=== PATIENT | male | born 1990 | race Two or more races ===

== ENCOUNTER 2020-12-30 06:02 | Emergency (ER) | payer OTHER ==
[~2020-12-30] VITALS: Ht 172.7 cm; Wt 81.6 kg
--- NOTE | 2020-12-30 06:08 | NUR ---
pt lizzy and thelma c/o paranoia. Per thelma, pt's called 911 because pt was trying to take his baby from his after stating that her breast milk was poison. Pt admits to using marijuana, but denies any other illicit drug use. Pt tearful and repeating that he is "worried about his baby". pt attached to monitor and pox. [employer] at bedside. Pt given blanket and call light within reach
--- NOTE | 2020-12-30 06:25 | NUR ---
URINE SAMPLE COLLECTED AND SENT TO LAB.
[2020-12-30 07:07] LABS: BASOPHILS # (AUTO) 0.1 K/uL (0.0-0.2); BASOPHILS % (AUTO) 0.7 % (0.0-2.0); EOSINOPHILS % (AUTO) 1.6 % (0.0-6.0); HEMATOCRIT 42 % (39-51); HEMOGLOBIN 14.2 g/dL (13.5-17.5); LYMPHOCYTES # (AUTO) 2.2 K/uL (0.8-4.8); LYMPHOCYTES % (AUTO) 22.6 % (20.0-44.0); MEAN CORPUSCULAR HGB CONC 34 g/dl (31.0-36.0); MEAN CORPUSCULAR VOLUME 92 fL (80-96); MONOCYTES # (AUTO) 0.9 K/uL (0.1-1.30); MONOCYTES % (AUTO) 9.9 % (2.0-12.0); NEUTROPHILS # (AUTO) 6.2 K/uL (1.8-8.9); NEUTROPHILS % (AUTO) 65.2 % (43.0-81.0); PLATELET COUNT (AUTO) 281 K/uL (150-450); RED BLOOD CELL COUNT(AUTO) 4.62 MIL/uL (4.5-6.0); WHITE BLOOD COUNT (AUTO) 9.6 K/uL (4.3-11.0)
[2020-12-30 07:12] LABS: BILIRUBIN,URINE SMALL (NEGATIVE); COLOR,URINE DARK YELLOW (YELLOW); LEUKOCYTE ESTERASE ,URINE NEGATIVE (NEGATIVE); NITRITE, URINE NEGATIVE (NEGATIVE); PH,URINE 6.5 (5.0-8.0); PROTEIN,URINE TRACE mg/dl (NEGATIVE); UGLUCOSE NEGATIVE (NEGATIVE)
[2020-12-30 07:21] LABS: CALCIUM, SERUM 8.6 mg/dL (8.5-10.1); CARBON DIOXIDE 31 mmol/L (21-32); CHLORIDE 103 mmol/L (98-107); CREATININE 0.9 mg/dL (0.6-1.3); GLUCOSE 100 mg/dL (74-106); POTASSIUM 4.1 mmol/L (3.5-5.1); SODIUM SERUM 140 mmol/L (136-145); UREA NITROGEN, BLOOD 8 mg/dL (7-18)
[2020-12-30 07:35] LABS: BACTERIA,URINE None seen /HPF (None Seen); RBC,URINE NONE SEEN /HPF (0-2); SQUAMOUS EPITHELIAL CELL,UR Few /HPF (None Seen); WBC,URINE NONE SEEN /HPF (0-3)
[2020-12-30 07:37] LABS: ALANINE AMINOTRANSFERASE 19 U/L (12-78); ALBUMIN 4.7 g/dL (3.4-5.0); ALKALINE PHOSPHATASE 45 U/L (46-116); ASPARTATE AMINOTRANSFERASE 14 U/L (15-37); BILIRUBIN,DIRECT 0.2 mg/dL (0.0-0.2); TOTAL PROTEIN, SERUM 7.5 g/dL (6.4-8.2)
--- NOTE | 2020-12-30 07:42 | NUR ---
THE PATIENT IS SLEEPING IN BED. RESPONSIVE TO VERBAL STIMULI. IN NO APPARENT DISTRESS.
[2020-12-30 08:26] LABS: ACETAMINOPHEN < 10 ug/ml (10-30); ALCOHOL, BLOOD < 0 mg/dL (0-0)
--- NOTE | 2020-12-30 10:30 | NUR ---
patient awake and alert, pt denies any complain, sts wants to go home. CALLED CASINO MANAGER FOR CONSULT.
--- NOTE | 2020-12-30 10:49 | NUR ---
ROSHAN CONGRESSIONAL ASSISTANT AT BEDSIDE, WILL CALL CRISIS FOR EVAL.
--- NOTE | 2020-12-30 11:20 | NUR ---
SS consult: SS Consult requested for this 30-year old Male who was BIBRA & [employer] due to paranoia. Per EMR, pt.'s , Skye Velasco called emergency services as per EMR the pt. was stating that the 's breast milk was poisoned. ELISHA met with pt. bedside. The pt. is A&O X 2 and is confused, disorganized. The pt. admits to using Cannabinoid daily and began to laugh when asked about amount and frequency of use. Pt. refusing to state how much Cannabinoids he smokes in a day. Pt. presents slightly labile as he tears up when SW asks about and child. Pt. states that he does not feel his child is safe and stated, "My is crazy". Some of the pt.'s speech is incoherent. Pt. unable to express why the is "crazy". SW explored pt.'s mental health. Pt. is guarded and hesitantly stated he has been diagnosed with Depression in the past and stated he is non-compliant with medication at this time. Pt. states he wants to be discharged to home. Plan: SW will call mobile equipment operator to assess this patient for appropriate Tx and/or discharge planning. Pt. has child at home. SW provided pt. with addiction resources and pt. accepted them.
--- NOTE | 2020-12-30 11:24 | NUR ---
SW called [employer], [facility] [phone] and left voicemail requestign ehr tos ee this pt. for psych clearance. SW will follow up as needed.
--- NOTE | 2020-12-30 12:26 | NUR ---
ELISHA called [place], [facility] [phone] who stated she will assess the pt. ETA 60 mins.
--- NOTE | 2020-12-30 14:13 | NUR ---
ADDICTION RESOURCES For Drugs and Alcohol [facility] Substance Abuse Helpline(SAS)-[facility] Outpatient treatment, residential treatment, recovery support for youth and adults [facility] www.actionfamilycVisualOn Maddie Mendieta Teen programs for drug/alcohol education and support Elsie Teresa [place]. Program for adults, sliding scale provides support and education [facility] www.HALO Medical TechnologiesNextCode Health.[facility] [place]; Outpatient/residential treatment programs; transition to sober living [facility] www.cri-help.org [place]; Outpatient and residential treatment programs; transition to sober living I-ADARP [facility] Drug Abuse Recovery Joelle Avila; Outpatient education and supportive programs for teens and adults [facility] www.[facility].org Yvonne; Residential treatment and work program for females only Hamel [place] www.[facility] [place]: Outpatient/residential treatment program for teens and young adults [facility] www.[facility].org [place] Detox, inpatient, outpatient for adults and youth [facility], [facility]. [place]; Outpatient programs and referrals to community residential programs. Alcoholics Anonymous -SFV information and meeting and schedules www.aa-intergroup.org Zg-Tvwh-Xzvaull https://al-anon.org/ [place] support groups for family of alcoholics. Marijuana Anonymous www.madistrict6.org -sfv listing of meetings Narcotics Anonymous www.na.org SOBER LIVING RESOURCES [facility] www.soberhousing.net A non-profit agency that provides resources to recovery and sober living homes throughout [facility] Men's Sober Living Homes: A Work in ProgressAmy Caro [place] [facility], [facility] Women's Sober Living Homes: [facility] x [phone] My New Beginning, LO [place] [facility] Coed Sober Living Homes: [facility] Counseling--Outpatient [facility] [address] [facility] [place] [address] (Specializes in in-depth psychotherapy for emotional distress: anxiety, depression, interpersonal conflicts, life transitions, childhood abuse) [facility] [address] [place] [address] (Assist with solving problem marital difficulties, separation & divorce, aging parents, & grief, chronic & terminal illness) [facility] [address] [place] [address] (Deal with loss & grief, anxiety, marital difficulties) Homebound/Mental Health Services [address] [place] [address] (Provide in-home mental services to people who are incapable of leaving their homes) Organization for Needs of the Elderly Senior Service/Resource Center [address] [place] [address] [facility] [address] [place] [address] Mental Health Services Fredia Rea [address] [place] [address] Services: Outpatient therapy for children, teens, young adults, adults, older adults, and families; Psychiatric services, medication support Psychiatric Outpatient Services [facility] Partial Hospitalization and Intensive Outpatient Program (Managed Care and [place] Only)[address] [facility] [phone] [facility] Partial Hospitalization and Outpatient [id number] [place], [place] [phone] [facility] Partial Hospitalization and Outpatient [address] [place], [place] [phone] JOELLE AVILA [facility] [address] [place], [place] [phone] [place] Joelle Avila Partial Hospitalization and Outpatient [id number] Boni Camille Morales, [phone] Crisis and Hotline Telephone Numbers 24-Hour service unless stated [place] Crisis Hotlines: [facility] Mental Health/Crisis Line........255.345.6153 Suicide Prevention Center (24 Hours).......483.236.8521 Suicide Prevention Crisis Center.......928.813.1025 (24 Hours) Assaults Against Women Hotline.........206.388.1500 (24 Hours -- [facility]) Women and Children Crisis Fdc...........563.582.2825 (24 Hours) Child Abuse Hotline............405.293.3057 [facility] Childrens Services [facility] (24 Hours)..........[phone] Alcoholics Anonymous (24 Hours)..........778.529.7574 Cocaine Anonymous (24 Hours)............584.180.7260 Narcotics Anonymous (24 Hours)..........[phone] Sarah Syed [facility] [address] [place] [address]
--- NOTE | 2020-12-30 14:53 | NUR ---
heel washer stringing machine operator Silvana at the bedside
--- NOTE | 2020-12-30 15:46 | NUR ---
The patient alert and oriented x4. Denies SI/HI. Denies pain. In room air and denies SOB. Respiration regular and unlabored. Patient discharged to home in stable condition. Written and verbal after care instructions given. Patient verbalizes understanding of instruction.
[2020-12-30 15:47] VITALS: BP 122/75
== END 2020-12-30 15:47 | disposition home or self-care (01) ==
LOC: ER 06:04
DX: R46.2 Strange and inexplicable behavior (principal); Z20.822 Contact with and (suspected) exposure to COVID-19
CPT/HCPCS: 36415; 80048; 80076; 80143; 80307; 80320; 81001; 85025; 87426; 99283; C9803; G0480

== ENCOUNTER 2020-12-31 19:13 | Emergency (ER) | payer OTHER ==
[~2020-12-31] VITALS: Ht 175.3 cm; Wt 65.8 kg
--- NOTE | 2020-12-31 19:20 | NUR ---
TO ER BED 14 BIBEMS AND [employer] C/O BEHAVIORAL, WAS FOUND RUNNING IN STREETS. PT PARANOID "MY IS GIVING MY BABY BREAST MILK AND ITS POISON. PT ADMITS TO SMOKING MARIJUANA. PT AAOX4 DALI CUTE DISTRESS NOTED, RESP EVEN AND UNLABORED. ER MD AT BEDSIDE TO EVAL PT WITH ORDERS RECEIVED. WILL CARRY OUT ORDERS.
--- NOTE | 2020-12-31 19:28 | NUR ---
MEMS INTEGRATION ENGINEER AT BEDSIDE FOR BLOOD DRAW.
[2020-12-31] MEDS ORDERED: OLANZAPINE 10 MG VIAL IM ONE ×2 (19:30→19:59)
--- NOTE | 2020-12-31 19:33 | NUR ---
BLOOD DRAWN BY VIDEO SPECIALIST.
[2020-12-31 19:40] LABS: BASOPHILS # (AUTO) 0.1 K/uL (0.0-0.2); BASOPHILS % (AUTO) 0.6 % (0.0-2.0); EOSINOPHILS % (AUTO) 0.6 % (0.0-6.0); HEMATOCRIT 44 % (39-51); HEMOGLOBIN 14.5 g/dL (13.5-17.5); LYMPHOCYTES # (AUTO) 2.3 K/uL (0.8-4.8); LYMPHOCYTES % (AUTO) 21.7 % (20.0-44.0); MEAN CORPUSCULAR HGB CONC 33 g/dl (31.0-36.0); MEAN CORPUSCULAR VOLUME 91 fL (80-96); MONOCYTES # (AUTO) 0.8 K/uL (0.1-1.30); MONOCYTES % (AUTO) 7.6 % (2.0-12.0); NEUTROPHILS # (AUTO) 7.3 K/uL (1.8-8.9); NEUTROPHILS % (AUTO) 69.5 % (43.0-81.0); PLATELET COUNT (AUTO) 316 K/uL (150-450); RED BLOOD CELL COUNT(AUTO) 4.77 MIL/uL (4.5-6.0); WHITE BLOOD COUNT (AUTO) 10.5 K/uL (4.3-11.0)
[2020-12-31 19:53] LABS: CALCIUM, SERUM 8.6 mg/dL (8.5-10.1); CARBON DIOXIDE 23 mmol/L (21-32); CHLORIDE 103 mmol/L (98-107); CREATININE 1.1 mg/dL (0.6-1.3); GLUCOSE 215 mg/dL (74-106); POTASSIUM 3.1 mmol/L (3.5-5.1); SODIUM SERUM 141 mmol/L (136-145); UREA NITROGEN, BLOOD 13 mg/dL (7-18)
[2020-12-31 20:07] LABS: ALANINE AMINOTRANSFERASE 17 U/L (12-78); ALBUMIN 4.5 g/dL (3.4-5.0); ALCOHOL, BLOOD < 3 mg/dL (0-0); ALKALINE PHOSPHATASE 54 U/L (46-116); ASPARTATE AMINOTRANSFERASE 12 U/L (15-37); BILIRUBIN,DIRECT 0.2 mg/dL (0.0-0.2); BILIRUBIN,TOTAL 0.9 mg/dL (0.2-1.0); TOTAL PROTEIN, SERUM 7.3 g/dL (6.4-8.2)
[2020-12-31 20:08] LABS: ACETAMINOPHEN < 2 ug/ml (10-30)
--- NOTE | 2020-12-31 21:50 | NUR ---
URINE SAMPLE COLLECTED AND SENT TO LAB.
[2020-12-31 22:11] LABS: BILIRUBIN,URINE Negative (NEGATIVE); COLOR,URINE YELLOW (YELLOW); LEUKOCYTE ESTERASE ,URINE Negative (NEGATIVE); NITRITE, URINE Negative (NEGATIVE); PH,URINE 5.5 (5.0-8.0); PROTEIN,URINE Negative (NEGATIVE); UGLUCOSE Negative (NEGATIVE)
[2020-12-31 22:22] LABS: BACTERIA,URINE Rare /HPF (None Seen); RBC,URINE NONE SEEN /HPF (0-2); SQUAMOUS EPITHELIAL CELL,UR Few /HPF (None Seen); WBC,URINE NONE SEEN /HPF (0-3)
--- NOTE | 2021-01-01 01:34 | NUR ---
PT ASLEEP, NO ACUTE DISTRESS NOTED, RESP EVEN AND UNLABORED. CALL LIGHT WITHIN REACH. WILL CONTINUE TO MONITOR PT. 1:1 SITTER AT BEDSIDE TO TAKE PT HOME.
[2021-01-01] MEDS ORDERED: LORA-259 PO (02:36)
--- NOTE | 2021-01-01 03:01 | NUR ---
NENA GÓMEZW AT BEDSIDE TO JAMSHID GONZALEZ.
[2021-01-01] MEDS ORDERED: OLANZAPINE 10 MG VIAL IM ONE (03:30)
--- NOTE | 2021-01-01 06:19 | NUR ---
PT VERY AGITATED, PACING AROUND, UNCOOPERATIVE, VERBALLY ABUSIVE TO ER STAFF. ASSISTED PT BACK TO BED WITH SECURITY AND ER STAFF.
--- NOTE | 2021-01-01 06:56 | NUR ---
PT SCREAMING, UNCOOPERATIVE, RESTLESS. ER MD MADE AWARE WITH ORDERS RECEIVED. PT MEDICATED ORDERED.
[2021-01-01] MEDS ORDERED: HALOPERIDOL LACTATE INJ 5 MG/ML VIAL ONE (07:08)
[2021-01-01] MEDS ORDERED: diphenhydrAMINE HCL 50 MG/ML VIAL ONE (07:08)
[2021-01-01] MEDS ORDERED: LORAZEPAM INJ 2 MG/ML VIAL ONE ×2 (07:09→10:33)
[2021-01-01] MEDS ORDERED: HALOPERIDOL LACTATE INJ 5 MG/ML VIAL IM ONE (07:30)
[2021-01-01] MEDS ORDERED: LORAZEPAM INJ 2 MG/ML VIAL IM/IV ONE ×2 (07:30→11:00)
[2021-01-01] MEDS ORDERED: diphenhydrAMINE HCL 50 MG/ML VIAL IM ONE (07:30)
--- NOTE | 2021-01-01 08:04 | NUR ---
THE PATIENT IS ALERT TO SELF. SPEECH PACING, WITH FLIGHTS OF IDEAS AND UNABLE TO FINISH THOUGHT. WILL CONTINUE TO MONITOR THE PATIENT.
--- NOTE | 2021-01-01 10:40 | NUR ---
PT IS AGITATED TRYING TO GET OUT OF BED. YELLING. ERMD AWRE. MEDICATED ORDERED.
--- NOTE | 2021-01-01 13:55 | NUR ---
Mold Filling Operator consult: SS requested for substance use. Pt is a 30-year-old, male. SW met with patient at his bedside in the emergency department. RN Lou was at the bedside. Pt was alert and oriented x2,(name and time). Pt was not oriented to place/situation. Pt presented confused and was mumbling. Pt was able to be redirected but was unable to provide SW with a clear history. Pt was unclothed. Per chart, pt was brought in by EMS and [employer] after he was found running on the streets, paranoid, and stated, "my is giving my baby breast milk and it's poison." Pt confirmed that he currently lives with his and child at [address] , [place], [address]; [phone]. Pt stated that he is unemployed at this time but has a source of income. Pt reported cannabis use but was unable to provide SW with additional information regarding frequency of use. Pt denied history of mental illness. Pt denied suicidal or homicidal ideation. SW notified RN Lou that SW filed substance use resources in the pts chart. RN Lou or ED staffing and scheduling coordinator to follow up at a later time. Pt plans to return to his prior living arrangement at home with family and arrange transportation. PLAN: Pt will d/c to home when he is medically stable. No further SS intervention at this time, however, SS will remain available as needed. RESOURCES: Substance use resources provided included: [facility] Substance Abuse Self-Helpline ([facility]) ; CRI -HELP [address] [facility] [place] [address] ; [facility] [address] [facility] [address] ; [facility] [address] [facility] [address] ; [facility] [address] [facility] [address] ; [facility] [address] [facility] [phone] ; [facility]; [facility] [place]; [facility] Yvonne; Alcoholics Anonymous -SFV
--- NOTE | 2021-01-01 18:05 | NUR ---
The patient is alert and oriented x4. Denies pain. In room air and denies SOB. Respiration regular and unlabored. Patient discharged to home in stable condition. Written and verbal after care instructions given. Patient verbalizes understanding of instruction.
[2021-01-01 18:06] VITALS: BP 131/82
== END 2021-01-01 18:07 | disposition home or self-care (01) ==
LOC: ER 19:15
DX: F23 Brief psychotic disorder (principal); F12.10 Cannabis abuse, uncomplicated; F22 Delusional disorders; R00.0 Tachycardia, unspecified; E87.6 Hypokalemia; Z20.822 Contact with and (suspected) exposure to COVID-19
CPT/HCPCS: 36415; 80048; 80076; 80143; 80307; 80320; 81001; 85025; 87426; 96372 ×2; 99285; C9803; J1200; J1630; J2060 ×2; J3490; G0480